=== PATIENT | female | born 1970 | race African-American/Black ===

== ENCOUNTER 2020-11-12 08:53 | Observation (INO) ==
[2020-11-12 17:44] LABS: Basophils % 0.7 % (0.0-0.8); Eosinophils # 0.1 10*3/uL (0.0-0.87); Hematocrit 41.6 VOL% (35.7-47.0); Hemoglobin 13.2 GM/DL (12.0-16.0); Immature Granulocytes % 0.5 %; Immature Granulocytes Absolute 0.03 #; Lymphocytes % 50.1 % (21.3-54.2); Mean Corpuscular HGB Conc 31.7 GM/DL (32-36); Mean Platelet Volume 9.9 FL (9.6-12.0); Monocytes % 7.1 % (1.7-12.7); Neutrophils % 39.6 % (38.7-73.9); Platelet Count 261 T/CUMM (130-400); Red Blood Count 4.78 MC/CUMM (3.8-5.5); Red Cell Distribution Width 14.3 % (9.3-17.3)
[2020-11-12 18:08] LABS: Albumin 4.1 G/DL (3.4-5.0); Bilirubin,Total 0.9 MG/DL (0.20-1.00); Calcium 9.6 MG/DL (8.5-10.1); Osmolality,Calculated 276.4 MOS/KG (273-304); Potassium 3.1 MMOL/L (3.5-5.1); Total Protein 7.5 G/DL (6.4-8.2)
[2020-11-12] MEDS ORDERED: DEXTROSE 50% 25 GM/50 ML VIAL IV PRN (19:20)
[2020-11-12] MEDS ORDERED: GLUCAGON 1 MG VIAL IM PRN (19:20)
[2020-11-12] MEDS ORDERED: ONDANSETRON 4 MG/2 ML VIAL IV PRN (19:20)
[2020-11-12] MEDS ORDERED: ENOXAPARIN 40 MG/0.4 ML SYRINGE SUBCUT SCH (19:30)
[2020-11-12] MEDS ORDERED: ALBUTEROL 2.5 MG/3 ML NEB RESP TX PRN (19:53)
[2020-11-12] MEDS: ACETAMINOPHEN 325 MG TABLET PO PRN (22:13)
[2020-11-12] MEDS: BUDESONIDE/FORMOTEROL 80-4.5 INHALER 6.9 GM INH SCH (22:45)
[2020-11-13 05:40] LABS: Basophils # 0.1 10*3/uL (0.0-0.2); Basophils % 1.1 % (0.0-0.8); Eosinophils # 0.1 10*3/uL (0.0-0.87); Eosinophils % 2.2 % (0.00-10.9); Hemoglobin 12.8 GM/DL (12.0-16.0); Immature Granulocytes % 0.6 %; Immature Granulocytes Absolute 0.03 #; Lymphocytes # 2.5 10*3/uL (1.4-4.0); Lymphocytes % 46.6 % (21.3-54.2); Mean Corpuscular HGB Conc 32.8 GM/DL (32-36); Mean Corpuscular Volume 86.1 FL (87-102); Mean Platelet Volume 10.3 FL (9.6-12.0); Monocytes % 8.5 % (1.7-12.7); Platelet Count 240 T/CUMM (130-400); Red Blood Count 4.53 MC/CUMM (3.8-5.5); Red Cell Distribution Width 14.1 % (9.3-17.3); White Blood Count 5.4 T/CUMM (4-12)
[2020-11-13 06:18] LABS: Calcium 9.6 MG/DL (8.5-10.1); Osmolality,Calculated 276.5 MOS/KG (273-304); Potassium 2.9 MMOL/L (3.5-5.1); Risk Ratio 4.25; VLDL Cholesterol 37.4 MG/DL
[2020-11-13] MEDS ORDERED: POTASSIUM CHLORIDE 20 MEQ TABLET PO ONE ×2 (07:30→10:18)
[2020-11-13] MEDS ORDERED: POTASSIUM CHLORIDE 10 MEQ TABLET PO SCH (09:00)
[2020-11-13] MEDS ORDERED: CHLORTHALIDONE 25 MG TABLET PO SCH (09:00)
[2020-11-13] MEDS ORDERED: MONTELUKAST 10 MG TABLET PO SCH (09:00)
[2020-11-13] MEDS ORDERED: ASPIRIN EC 81 MG TABLET PO SCH (09:00)
[2020-11-13] MEDS ORDERED: PANTOPRAZOLE 40 MG TABLET PO SCH (09:00)
[2020-11-13] MEDS: BUDESONIDE/FORMOTEROL 80-4.5 INHALER 6.9 GM INH SCH ×2 (09:55→10:00)
[2020-11-13] MEDS: ACETAMINOPHEN 325 MG TABLET PO PRN (10:09)
[2020-11-13 13:31] VITALS: BP 126/51
[2020-11-13] MEDS ORDERED: BUDESONIDE/FORMOTEROL 160-4.5 INHALER 6 GM INH SCH (21:00)
[2020-11-13] MEDS ORDERED: TOPIRAMATE 100 MG TABLET PO SCH (21:00)
== END 2020-11-13 13:33 | disposition home or self-care (01) ==
LOC: N.ED 08:53 → N.EDINP 08:53 → SUATTDRO 19:20 → N.EDINP 22:16 → N.TELES 22:18
PROVIDERS: ADMIT Phlebology; ATTEND Internal Medicine

== ENCOUNTER 2022-05-18 05:44 | Inpatient (IN) ==
[~2022-05-18 05:44] MED LIST: cefTRIAXone 1,000 MG in SODIUM CHLORIDE 0.9% 100 ML IV ONE
[2022-05-18 06:21] LABS: Basophils # 0.1 10*3/uL (0.0-0.2); Basophils % 1.5 % (0.0-0.8); Eosinophils # 0.3 10*3/uL (0.0-0.87); Eosinophils % 6.7 % (0.00-10.9); Hematocrit 37.7 VOL% (35.7-47.0); Hemoglobin 12.2 GM/DL (12.0-16.0); Immature Granulocytes % 0.3 %; Immature Granulocytes Absolute 0.01 #; Lymphocytes # 1.6 10*3/uL (1.4-4.0); Lymphocytes % 41.8 % (21.3-54.2); Mean Corpuscular HGB Conc 32.4 GM/DL (32-36); Mean Corpuscular Volume 89.8 FL (87-102); Monocytes # 0.3 10*3/uL (0.11-0.8); Monocytes % 8.5 % (1.7-12.7); Neutrophils % 41.2 % (38.7-73.9); Platelet Count 201 T/CUMM (130-400); Red Cell Distribution Width 13.1 % (9.3-17.3); White Blood Count 3.9 T/CUMM (4-12)
[2022-05-18] MEDS: LACTATED RINGERS 1,000 ML IV SCH ×2 (06:22→10:20)
[2022-05-18] MEDS ORDERED: FAMOTIDINE 20 MG TABLET PO ONE (06:34)
[2022-05-18] MEDS ORDERED: DIAZEPAM 5 MG TABLET PO ONE (06:34)
[2022-05-18 06:37] LABS: PT Patient Result 10.8 SECS (10.1-12.1); Partial Thromboplastin Time 30.2 SECS (23.7-32.9)
[2022-05-18 06:45] LABS: Albumin 3.9 G/DL (3.4-5.0); Bilirubin,Total 0.4 MG/DL (0.20-1.00); Calcium 9.2 MG/DL (8.5-10.1); Potassium 3.9 MMOL/L (3.5-5.1); Total Protein 7.6 G/DL (6.4-8.2)
[2022-05-18] MEDS ORDERED: fentaNYL 100 MCG/2 ML VIAL ONE (07:22)
[2022-05-18] MEDS ORDERED: LIDOCAINE 2% 5 ML VIAL ONE (07:22)
[2022-05-18] MEDS ORDERED: propofoL 200 MG/20 ML VIAL IV ONE (07:22)
[2022-05-18] MEDS ORDERED: MIDAZOLAM 2 MG/2 ML VIAL ONE (07:23)
[2022-05-18] MEDS ORDERED: SEVOFLURANE 1 UNIT/15 MINUTE INH ONE ×5 (08:15→09:01)
[2022-05-18] MEDS ORDERED: ONDANSETRON 4 MG/2 ML VIAL ONE (08:15)
[2022-05-18] MEDS ORDERED: PHENYLEPHRINE 1 MG/10 ML SYRINGE IV ONE ×2 (08:20)
[2022-05-18] MEDS: ONDANSETRON 4 MG/2 ML VIAL IV PRN ×3 (09:46→16:03)
[2022-05-18] MEDS: HYDROmorphone 1 MG/1 ML SYRINGE IV PRN ×2 (09:48→09:55)
[2022-05-18] MEDS ORDERED: KETOROLAC 30 MG/1 ML VIAL IV ONE (10:08)
[2022-05-18] MEDS ORDERED: KETOROLAC 30 MG/1 ML VIAL ONE (10:09)
[2022-05-18] MEDS ORDERED: OXYBUTYNIN 5 MG TABLET PO ONE ×2 (10:11→13:44)
[2022-05-18] MEDS ORDERED: oxyCODONE/ACETAMINOPHEN 5-325 MG TABLET PO ONE ×2 (10:11→13:45)
[2022-05-18] MEDS ORDERED: LEVOFLOXACIN INJ 500 MG/100 ML PREMIX IV ONE (12:41)
[2022-05-18] MEDS ORDERED: SIMETHICONE CHEW 125 MG TABLET PO PRN (14:19)
[2022-05-18] MEDS ORDERED: diphenhydrAMINE 50 MG/1 ML VIAL IV PRN (14:19)
[2022-05-18] MEDS ORDERED: PROMETHAZINE 25 MG/1 ML VIAL IM PRN (14:19)
[2022-05-18] MEDS ORDERED: HYDROmorphone 1 MG/1 ML SYRINGE IV PRN (14:19)
[2022-05-18] MEDS ORDERED: NITROGLYCERIN SL 0.4 MG TABLET SL PRN (14:25)
[2022-05-18 14:35] LABS: Basophils % 0.6 % (0.0-0.8); Eosinophils % 0.9 % (0.00-10.9); Hematocrit 34.4 VOL% (35.7-47.0); Hemoglobin 11.1 GM/DL (12.0-16.0); Immature Granulocytes % 0.3 %; Immature Granulocytes Absolute 0.01 #; Lymphocytes # 0.2 10*3/uL (1.4-4.0); Lymphocytes % 4.9 % (21.3-54.2); Mean Corpuscular HGB Conc 32.3 GM/DL (32-36); Mean Corpuscular Volume 88.7 FL (87-102); Monocytes % 0.3 % (1.7-12.7); Platelet Count 138 T/CUMM (130-400); Red Blood Count 3.88 MC/CUMM (3.8-5.5); Red Cell Distribution Width 13.2 % (9.3-17.3); White Blood Count 3.3 T/CUMM (4-12)
[2022-05-18 14:51] LABS: Albumin 3.2 G/DL (3.4-5.0); Bilirubin,Total 0.8 MG/DL (0.20-1.00); Calcium 8.9 MG/DL (8.5-10.1); Osmolality,Calculated 281.1 MOS/KG (273-304); Potassium 3.7 MMOL/L (3.5-5.1); Total Protein 6.3 G/DL (6.4-8.2)
[2022-05-18] MEDS ORDERED: ALBUTEROL 2.5 MG/3 ML NEB RESP TX PRN (15:03)
[2022-05-18 15:04] LABS: Band Neutrophils 9 % (0-10); Eosinophils 1 % (0-10); Lymphocytes 7 % (20-55); Total Cells Counted 100
[2022-05-18 15:06] LABS: Platelet Estimate Normal
[2022-05-18] MEDS: SODIUM CHLORIDE 0.9% 1,000 ML IV SCH (16:06)
[2022-05-18] MEDS: OXYBUTYNIN 5 MG TABLET PO SCH ×2 (16:11→21:07)
[2022-05-18] MEDS: ACETAMINOPHEN 325 MG TABLET PO SCH ×2 (16:11→21:07)
[2022-05-18] MEDS ORDERED: amLODIPine 5 MG TABLET PO SCH (21:00)
[2022-05-18] MEDS: DOCUSATE SODIUM 100 MG CAPSULE PO SCH (21:07)
[2022-05-18] MEDS: oxyCODONE/ACETAMINOPHEN 5-325 MG TABLET PO PRN (23:02)
[2022-05-19] MEDS: SODIUM CHLORIDE 0.9% 1,000 ML IV SCH ×3 (01:46→17:53)
[2022-05-19] MEDS: BUDESONIDE/FORMOTEROL 160-4.5 INHALER 6 GM INH SCH ×3 (02:39→20:01)
[2022-05-19 05:29] LABS: Basophils # 0.1 10*3/uL (0.0-0.2); Basophils % 0.3 % (0.0-0.8); Eosinophils % 0.1 % (0.00-10.9); Hematocrit 32.6 VOL% (35.7-47.0); Hemoglobin 10.3 GM/DL (12.0-16.0); Immature Granulocytes % 1.9 %; Immature Granulocytes Absolute 0.27 #; Lymphocytes # 0.7 10*3/uL (1.4-4.0); Lymphocytes % 4.6 % (21.3-54.2); Mean Corpuscular HGB Conc 31.6 GM/DL (32-36); Mean Corpuscular Volume 92.6 FL (87-102); Mean Platelet Volume 10.4 FL (9.6-12.0); Monocytes # 0.6 10*3/uL (0.11-0.8); Monocytes % 4.3 % (1.7-12.7); Neutrophils % 88.8 % (38.7-73.9); Platelet Count 141 T/CUMM (130-400); Red Blood Count 3.52 MC/CUMM (3.8-5.5); Red Cell Distribution Width 13.6 % (9.3-17.3); White Blood Count 14.5 T/CUMM (4-12)
[2022-05-19] MEDS: ACETAMINOPHEN 325 MG TABLET PO SCH ×4 (05:55→19:57)
[2022-05-19 06:03] LABS: Band Neutrophils 8 % (0-10); Lymphocytes 3 % (20-55); Nucleated Red Blood Cells 3 /100 WBC (0-5); Platelet Estimate Normal; Total Cells Counted 100
[2022-05-19] MEDS: oxyCODONE/ACETAMINOPHEN 5-325 MG TABLET PO PRN ×2 (06:12→11:44)
[2022-05-19 06:21] LABS: Calcium 8.1 MG/DL (8.5-10.1); Osmolality,Calculated 273.8 MOS/KG (273-304); Potassium 4.2 MMOL/L (3.5-5.1)
[2022-05-19] MEDS: OXYBUTYNIN 5 MG TABLET PO SCH ×3 (08:46→20:01)
[2022-05-19] MEDS: TAMSULOSIN 0.4 MG CAPSULE PO SCH (08:46)
[2022-05-19] MEDS: DOCUSATE SODIUM 100 MG CAPSULE PO SCH ×2 (08:46→20:01)
[2022-05-19] MEDS: ASPIRIN EC 81 MG TABLET PO SCH (08:46)
[2022-05-19] MEDS ORDERED: cefTRIAXone 1,000 MG in SODIUM CHLORIDE 0.9% 100 ML IV SCH (09:00)
[2022-05-19] MEDS ORDERED: MAGNESIUM SULF RIDER 2 GM/50 ML PREMIX IV PRN (10:23)
[2022-05-19] MEDS ORDERED: MAGNESIUM SULF RIDER 4 GM/100 ML PREMIX IV PRN (10:23)
[2022-05-19] MEDS: ONDANSETRON 4 MG/2 ML VIAL IV PRN (11:03)
[2022-05-19] MEDS: MEROPENEM 500 MG in SODIUM CHLORIDE 0.9% 100 ML IV SCH ×2 (11:43→19:56)
[2022-05-19] MEDS: KETOROLAC 15 MG/1 ML VIAL IV PRN ×2 (13:43→20:03)
[2022-05-20 05:00] LABS: Calcium 8.5 MG/DL (8.5-10.1); Osmolality,Calculated 281.1 MOS/KG (273-304); Potassium 3.9 MMOL/L (3.5-5.1)
[2022-05-20 05:06] LABS: Red Blood Count 3.41 MC/CUMM (3.8-5.5); White Blood Count 9.51 T/CUMM (4-12)
[2022-05-20 05:07] LABS: Basophils % 0.3 % (0.0-0.8); Eosinophils # 0.2 10*3/uL (0.0-0.87); Hematocrit 31.3 VOL% (35.7-47.0); Hemoglobin 10.1 GM/DL (12.0-16.0); Immature Granulocytes % 1.3 %; Immature Granulocytes Absolute 0.12 #; Lymphocytes # 0.9 10*3/uL (1.4-4.0); Lymphocytes % 9.1 % (21.3-54.2); Mean Corpuscular HGB Conc 32.3 GM/DL (32-36); Mean Corpuscular Volume 91.8 FL (87-102); Mean Platelet Volume 10.6 FL (9.6-12.0); Monocytes # 0.4 10*3/uL (0.11-0.8); Monocytes % 4.6 % (1.7-12.7); Neutrophils % 82.7 % (38.7-73.9); Red Cell Distribution Width 13.7 % (9.3-17.3)
[2022-05-20 05:08] LABS: Platelet Count 101 T/CUMM (130-400)
[2022-05-20 05:17] LABS: Band Neutrophils 2 % (0-10); Eosinophils 4 % (0-10); Hypochromia Slight; Lymphocytes 11 % (20-55); Platelet Estimate Adequate; Total Cells Counted 100
[2022-05-20] MEDS: ACETAMINOPHEN 325 MG TABLET PO SCH ×4 (05:50→21:01)
[2022-05-20] MEDS: MEROPENEM 500 MG in SODIUM CHLORIDE 0.9% 100 ML IV SCH ×3 (05:52→21:08)
[2022-05-20] MEDS: SODIUM CHLORIDE 0.9% 1,000 ML IV SCH (06:19)
[2022-05-20] MEDS ORDERED: MAGNESIUM SULF RIDER 2 GM/50 ML PREMIX IV ONE (07:27)
[2022-05-20] MEDS: oxyCODONE/ACETAMINOPHEN 5-325 MG TABLET PO PRN (07:33)
[2022-05-20] MEDS: KETOROLAC 15 MG/1 ML VIAL IV PRN (07:45)
[2022-05-20] MEDS ORDERED: POLYETHYLENE GLYCOL POWDER 17 GM PACK PO SCH (09:00)
[2022-05-20] MEDS: TAMSULOSIN 0.4 MG CAPSULE PO SCH (09:27)
[2022-05-20] MEDS: OXYBUTYNIN 5 MG TABLET PO SCH ×3 (09:28→21:11)
[2022-05-20] MEDS: BUDESONIDE/FORMOTEROL 160-4.5 INHALER 6 GM INH SCH ×2 (09:28→21:14)
[2022-05-20] MEDS: DOCUSATE SODIUM 100 MG CAPSULE PO SCH ×2 (09:28→21:02)
[2022-05-20] MEDS: ASPIRIN EC 81 MG TABLET PO SCH (09:28)
[2022-05-21] MEDS: ACETAMINOPHEN 325 MG TABLET PO SCH (04:16)
[2022-05-21] MEDS: MEROPENEM 500 MG in SODIUM CHLORIDE 0.9% 100 ML IV SCH (04:20)
[2022-05-21 04:31] VITALS: BP 117/72
[2022-05-21] MEDS: ONDANSETRON 4 MG/2 ML VIAL IV PRN (04:31)
[2022-05-21 06:43] LABS: Basophils % 0.7 % (0.0-0.8); Eosinophils # 0.2 10*3/uL (0.0-0.87); Eosinophils % 3.5 % (0.00-10.9); Hematocrit 30.3 VOL% (35.7-47.0); Hemoglobin 9.7 GM/DL (12.0-16.0); Immature Granulocytes % 0.9 %; Immature Granulocytes Absolute 0.05 #; Lymphocytes # 1.2 10*3/uL (1.4-4.0); Lymphocytes % 22.1 % (21.3-54.2); Mean Corpuscular Volume 90.7 FL (87-102); Mean Platelet Volume 11.3 FL (9.6-12.0); Monocytes # 0.4 10*3/uL (0.11-0.8); Monocytes % 7.7 % (1.7-12.7); Neutrophils % 65.1 % (38.7-73.9); Platelet Count 128 T/CUMM (130-400); Red Blood Count 3.34 MC/CUMM (3.8-5.5); Red Cell Distribution Width 13.5 % (9.3-17.3); White Blood Count 5.47 T/CUMM (4-12)
[2022-05-21 07:02] LABS: Calcium 8.8 MG/DL (8.5-10.1); Osmolality,Calculated 286.7 MOS/KG (273-304); Potassium 4.1 MMOL/L (3.5-5.1)
== END 2022-05-21 08:00 | disposition home or self-care (01) | DRG 854 ==
LOC: N.SDSINP 05:44 → N.OR 05:44 → N.2W 15:23
PROVIDERS: ADMIT Surgery; ATTEND Surgery